=== PATIENT | female | born 1965 | race Caucasian/White ===

== ENCOUNTER → 2021-06-10 14:28 | Outpatient (CLI) | payer OTHER, SELFPAY ==
--- NOTE | 2021-06-10 | DI.MG.S_ITS ---
BILATERAL DIGITAL SCREENING MAMMOGRAM 3D/2D WITH CAD WITH AUGMENTATION: 06/10/2021 CLINICAL: Routine screening. Family history of breast cancer. Comparison is made to exams dated: 10/27/2015 mammogram, 02/22/2017 mammogram, and 02/12/2019 mammogram - [facility]. There are scattered fibroglandular elements in both breasts. Current study was also evaluated with a Computer Aided Detection (CAD) system. Bilateral breast implants are intact. No significant masses, calcifications, or other findings are seen in either breast. There has been no significant interval change. IMPRESSION: NEGATIVE There is no mammographic evidence of malignancy. A 1 year screening mammogram is recommended. This exam was interpreted at Station ID: [id number]. NOTE: For mammograms, a report in lay terms will be sent to the patient. Approximately 15% of breast malignancies will not be visualized mammographically. In the management of a palpable breast mass, a negative mammogram must not discourage biopsy of a clinically suspicious lesion. Electronically Signed By: Kai [email or web address]:06/10/2021 15:59:09 letter sent: Normal Exam ACR BI-RADS Category 1: Negative 3341F
== END ==
PROVIDERS: PCP Student in an Organized Health Care Education/Training Program; Referring Provider Student in an Organized Health Care Education/Training Program; Visit Provider Student in an Organized Health Care Education/Training Program
DX: Z12.31 Encounter for screening mammogram for malignant neoplasm of breast (principal); Z80.3 Family history of malignant neoplasm of breast
CPT/HCPCS: 77063; 77067

== ENCOUNTER → 2024-07-02 08:31 | Outpatient (CLI) | payer OTHER, SELFPAY ==
--- NOTE | 2024-07-02 08:32 | DI.MG.S_ITS ---
UNILATERAL LEFT DIGITAL DIAGNOSTIC MAMMOGRAM 3D/2D WITH ADDITIONAL VIEWS: 07/02/2024 CLINICAL: Additional evaluation requested from prior study. Comparison is made to exams dated: 06/10/2021 mammogram - [facility], 02/12/2019 mammogram, 02/22/2017 mammogram - [facility], 06/10/2024 mammogram, and 09/05/2022 mammogram - outside location. There are scattered areas of fibroglandular density in the left breast (category b / 25%-50% glandular tissue). There is an intact subpectoral silicone gel implant. The finding seen on recent outside screening mammogram did not persist with additional imaging and is consistent with superimposition of normal breast tissue. No significant masses, calcifications, or other findings are seen in the breast. IMPRESSION: BENIGN Superimposition of normal breast tissue. No mammographic evidence of malignancy. A 1 year screening mammogram is recommended. Findings and recommendations were conveyed to the patient during today's evaluation. Based on Tyrer-Cuzick model (a risk assessment model), the patient's lifetime risk is 22.3% and her 10 year risk is 9.0%. If a patient has an elevated risk, a more comprehensive evaluation should be considered and/or a referral to a genetic counselor. The [place] [employer], [place] [employer], and NCCN Guidelines advise the consideration of Breast MRI as an adjunct to screening mammography in patients whose Lifetime risk to develop breast cancer is 20% or higher. This exam was interpreted at Station ID: [id number]. NOTE: For mammograms, a report in lay terms will be sent to the patient. Approximately 15% of breast malignancies will not be visualized mammographically. In the management of a palpable breast mass, a negative mammogram must not discourage biopsy of a clinically suspicious lesion. Electronically Signed By: Monae Irby M.D., Ph.D. eb/:07/02/2024 10:35:36 letter sent: Normal Exam ACR BI-RADS Category 2: Benign Finding(s) 3342F
== END ==
LOC: MAMMO 08:31
PROVIDERS: PCP Student in an Organized Health Care Education/Training Program; Referring Provider Nurse Practitioner Family; Visit Provider Nurse Practitioner Family
DX: R92.8 Other abnormal and inconclusive findings on diagnostic imaging of breast (principal); R92.322 Mammographic fibroglandular density, left breast; Z98.82 Breast implant status
CPT/HCPCS: 77065; G0279